=== PATIENT | male | born 1995 | race Caucasian/White ===

== ENCOUNTER 2017-02-09 15:29 | Emergency (ER) | payer OTHER ==
[2017-02-09 15:37] VITALS: TEMP 98.1
--- NOTE | 2017-02-09 17:35 | EDPHY ---
H & P Time Seen by Provider: 02/09/17 17:33 HPI/ROS: CHIEF COMPLAINT: Lump in abdomen HISTORY OF PRESENT ILLNESS: The patient is a 22 y/o male complaining of a lump in the upper right quadrant of his abdomen. He noticed the lump yesterday. Today he went to [facility]. There he had blood work and an X- ray. They advised him to come to the ED for a CT scan. The lump doesn't hurt. He has associated anxiety and intermittent lightheadedness and fatigue. REVIEW OF SYSTEMS: Constitutional: No fever, no chills Eyes: No visual changes ENT: No sore throat Respiratory: No cough, no shortness of breath Cardiac: No chest pain Gastrointestinal: No nausea, no vomiting, no abdominal pain Genitourinary: no dysuria Musculoskeletal: No leg pain or swelling Skin: No rash Neurological: No headache, no weakness Psychiatric: No depression Past Medical/Surgical History: Denies Social History: [employer] student, mother at bedside, lives in [place] Smoking Status: Current some day smoker Physical Exam: General Appearance: Alert, pleasant Eyes: Pupils equal and round, no conjunctival pallor ENT, Mouth: Mucous membranes moist Neck: Normal inspection Respiratory: Lungs are clear to auscultation, no chest wall tenderness or lump Cardiovascular: Regular rate and rhythm Gastrointestinal: Abdomen is soft and non-tender, no palpable mass Neurological: A&O, nonfocal, normal gait Skin: Warm and dry, no rash Extremities: Normal inspection Psychiatric: Mood and affect normal Constitutional: Initial Vital Signs Temperature (C) 36.7 C 02/09/17 15:32 Heart Rate 57 L 02/09/17 15:32 Respiratory Rate 18 02/09/17 15:32 Blood Pressure 119/56 L 02/09/17 15:32 O2 Sat (%) 95 02/09/17 15:32 O2 Delivery Mode Room Air Allergies/Adverse Reactions: No Known Allergies Allergy (Unverified 02/09/17 15:32) Home Medications: Medication Instructions Recorded NK [No Known Home Meds] 02/09/17 Medical Decision Making - Diagnostics Imaging Results: CT scan of the abdomen and pelvis read by the radiologist is normal. Imaging: Discussed imaging studies w/ roller cleaner Radiologist ED Course/Re-evaluation: The patient is a 22 y/o male complaining of a non-painful lump in the upper right quadrant of his abdomen. He noticed the lump yesterday and was evaluated at [facility]. He localizes the lump to over the inferior border of the right ribs. I do not feel the lump. He is quite anxious about it. Plan for CT. CT was normal. Patient is safe to be discharged. Return precautions given. He agrees to this course of action. Differential Diagnosis: The differential diagnosis for this patient's lump includes but is not limited to chest wall asymmetry related to scoliosis, cyst, abscess, or cancer. - Data Points Laboratory Results: Laboratory Results 02/09/17 18:12 Departure - Departure Disposition: Home, Routine, Self-Care Clinical Impression: Normal exam, Concern about RUQ lump Condition: Good Instructions: Normal Exam (ED) Additional Instructions: 1. Follow-up with your primary care provider for further concerns. 2. Return to the ED for worsening of condition. Referrals: NONE *PRIMARY CARE P,. [Primary Care Provider] - As per Instructions Maria Teresa Lake MD [Medical Doctor] - As per Instructions Report Scribed for: Becca Reyes Report Scribed by: Argelia Wilks Date of Report: 02/09/17 Time of Report: 17:34 Physician Review and Approval Statement: 02/09/17 17:34 Portions of this note were transcribed by a certified medical technician. I personally performed a history, physical exam, medical decision making, and confirmed accuracy of information the transcribed note.
[2017-02-09 18:35] LABS: ANION GAP 13 mEq/L (8-16); CARBON DIOXIDE 25 mEq/l (22-31); CHLORIDE 102 mEq/L (97-110); GLOMERULAR FILTRATION RATE > 60; GLUCOSE 75 mg/dL (70-100); SODIUM 140 mEq/L (134-144)
[2017-02-09] MEDS ORDERED: IOPAMIDOL (ISOVUE-300) 100 ML BTL ONE (18:38)
[2017-02-09 20:01] VITALS: BP 122/69; PULSE 60; RESP 16; O2SAT 96
== END 2017-02-09 20:01 | disposition home or self-care (01) ==
DX: R19.01 Right upper quadrant abdominal swelling, mass and lump (principal); F17.200 Nicotine dependence, unspecified, uncomplicated
CPT/HCPCS: Q9967